=== PATIENT | female | born 1980 | race Caucasian/White ===

== ENCOUNTER → 2022-06-09 | Outpatient (CLI) | payer BC ==
--- NOTE | 2022-06-10 15:50 | MM ---
Reason for Exam: Screening (asymptomatic). Patient History: Menarche at age 16. Hormonal Contraceptives, from age 18 until age 26. Risk Values: Vanda 5 year model risk: 0.4%. NCI Lifetime model risk: 6.7%. Prior Study Comparison: No prior studies available for comparison. Tissue Density: The breast tissue is heterogeneously dense. This may lower the sensitivity of mammography. Findings: Analyzed By CAD. Area of nodular asymmetric density central posterior left MLO view incompletely disperses on 3-D images. This may represent superimposition shadow but further evaluation is recommended. Faint grouped microcalcifications superior anterior left MLO view also warrant further evaluation with magnification views. Otherwise, no significant mass, suspicious microcalcification, or other discrete abnormality is seen. Overall Assessment: Incomplete: need additional imaging evaluation, BI-RAD 0 Management: Special View Mammogram of the left breast. To include spot mag CC, spot mag lateral, 3-D lateral, and spot 3-D MLO views (for the anterior 12-1 o'clock microcalcifications and for the central posterior left MLO asymmetric density). Targeted ultrasound left breast for any persisting abnormality. Electronically signed and approved by: Pete Olivares M.D. Radiologist
== END | disposition home or self-care (01) ==
LOC: RADMAMWWP 07:15
PROVIDERS: ATTEND Obstetrics & Gynecology
DX: Z12.31 Encounter for screening mammogram for malignant neoplasm of breast (principal)
CPT/HCPCS: 77063; 77067

== ENCOUNTER → 2022-06-15 | Outpatient (CLI) | payer BC ==
--- NOTE | 2022-06-15 15:45 | MM ---
Reason for Exam: Additional evaluation requested from abnormal screening. Last screening mammogram was performed less than 1 month ago. Patient History: Menarche at age 16. Patient has no children. Hormonal Contraceptives, from age 18 until age 26. Last menstrual period: 05/29/2022 Risk Values: Vanda 5 year model risk: 0.6%. NCI Lifetime model risk: 10.2%. Prior Study Comparison: 06/09/2022 Bilateral MG 3D screening mammo w/cad, [facility]. Tissue Density: Left: The breast tissue is heterogeneously dense. This may lower the sensitivity of mammography. Findings: Analyzed By CAD. Grouped microcalcifications 12:00 left breast are faint but punctate and slightly heterogeneous. Sampling is recommended. The central posterior MLO asymmetric density disperses on additional views. Overall Assessment: Suspicious, BI-RAD 4 Management: Stereotactic Core Biopsy of the left breast. For the 12:00 left breast microcalcifications. These can be targeted with a CC from above approach. Electronically signed and approved by: Pete Olivares M.D. Radiologist
== END | disposition home or self-care (01) ==
LOC: RADMAMWWP 14:57
PROVIDERS: ATTEND Obstetrics & Gynecology
DX: R92.1 Mammographic calcification found on diagnostic imaging of breast (principal)
CPT/HCPCS: 77061; 77065

== ENCOUNTER → 2022-06-30 | Day surgery (SDC) | payer BC ==
[2022-06-30 10:14] VITALS: RESP 16
[2022-06-30 11:12] VITALS: BP 110/75; PULSE 86; TEMP 98.2
--- NOTE | 2022-07-05 11:35 | MM ---
Risk Values: Vanda 5 year model risk: 0.6%. NCI Lifetime model risk: 10.2%. Prior Study Comparison: 06/09/2022 Bilateral MG 3D screening mammo w/cad, [facility]. 06/15/2022 Left MG 3D work up w/cad , [facility]. Pathology Description: Location: 11 o'clock, central. Marker Left Behind. Specimen Radiograph. Approach: CC FA Needle Type: Eviva Cores: 7 Skin Nicks: 1 Gauge: 9 The procedure of stereotactic guided core biopsy was explained to the patient. Benefits, alternatives, and risks were discussed. An informed consent was then obtained. The shortness pathway for biopsy was chosen. Shortness pathway was cranial to caudal approach. I performed the localization, then perform the remainder of the procedure. Overlying skin is cleansed with Betadine. Lidocaine is used as anesthetic into the skin and deeper tissue. Lidocaine with epinephrine is used as anesthetic to the deeper tissue while sampling. A vacuum assisted biopsy gun was used to obtain multiple core samples. The patient tolerated the procedure well without any immediate complication. The patient was kept in the radiology department for short stay after the procedure and then discharged home in stable condition. Targeted calcifications are identified in specimen mammogram. Post biopsy mammogram shows the clip to appear in satisfactory position relative to the targeted area of concern on the preprocedure images. Impression: SUCCESSFUL, UNCOMPLICATED STEREOTACTIC GUIDED CORE BIOPSY OF AREA OF CONCERN IN THE LEFT BREAST. Pathology Results: Result: Benign, Fibrocystic change. LEFT BREAST, STEREOTACTIC NEEDLE CORE BIOPSY: Fibrocystic changes including sclerosing adenosis with calcifications, columnar cell change, fibrosis and cysts. Overall Assessment: Benign Management: Diagnostic Mammogram of the left breast in 6 months. Electronically signed and approved by: Juan Paige M.D.
== END ==
LOC: RADMAMWWP 09:52
PROVIDERS: ATTEND Surgery
DX: N60.22 Fibroadenosis of left breast (principal); N60.32 Fibrosclerosis of left breast; N60.02 Solitary cyst of left breast
CPT/HCPCS: 88305; 19081; A4648; J2001

== ENCOUNTER → 2022-08-03 | Outpatient (CLI) | payer BC ==
[2022-08-03 14:28] LABS: Basophils # (A) 0.05 X 10*3/uL (0.00-0.10); Eosinophils # (A) 0.17 X 10*3/uL (0.04-0.35); Eosinophils % (A) 3.4 %; HCT 42.2 % (37.2-46.3); HGB 13.8 g/dL (12.0-15.0); Immature Grans, Automated 0.2 %; Lymphocytes % (A) 37.5 %; MCH 28.8 pg (27.0-32.0); MCHC 32.7 g/dL (32.0-37.0); MCV 87.9 fL (80.0-97.0); Mean Platelet Volume 11.3 fL (9.5-12.2); Monocytes # (A) 0.62 X 10*3/uL (0.20-1.00); Monocytes % (A) 12.3 %; NRBC Per 100 WBC 0 /100 WBCS (0.0-0.0); Neutrophils # (A) 2.31 X 10*3/uL (1.80-7.70); Neutrophils % (A) 45.6 %; Platelet Count 259 X 10*3/uL (140-440); RDW 12.6 % (11.5-14.5); WBC 5.06 X 10*3/uL (4.50-10.00)
[2022-08-03 15:01] LABS: ALT 12 U/L (8-44); AST 19 U/L (13-35); African American GFR (CKD) 87.5 (60.0-200.0); Albumin 4.2 g/dL (3.8-4.9); Alkaline Phosphatase 74 U/L (41-126); BUN/Creat Ratio 13.98 Ratio (12.00-20.00); Blood Urea Nitrogen 13.2 mg/dL (9.0-27.0); Calcium 9.2 mg/dL (8.7-10.3); Carbon Dioxide 26.2 mmol/L (20.0-27.5); Chloride 105 mmol/L (96-109); Globulin 2.6 g/dL (1.6-3.3); Glucose 94 mg/dL (70-110); Non-African American GFR(CKD) 75.5 (60.0-200.0); Potassium 4.7 mmol/L (3.5-5.5); Sodium 140 mmol/L (135-145); Total Protein 6.8 g/dL (6.2-8.2)
[2022-08-03 15:41] LABS: Chol/HDL Ratio 2.46 Ratio
== END | disposition home or self-care (01) ==
LOC: LABWHC1 07:54
PROVIDERS: ATTEND Family Medicine
DX: Z00.01 Encounter for general adult medical examination with abnormal findings (principal); Z13.1 Encounter for screening for diabetes mellitus
CPT/HCPCS: 36415; 80053; 80061; 83036; 83721; 84443; 85025

== ENCOUNTER → 2023-01-18 | Outpatient (CLI) | payer MEDICAID ==
--- NOTE | 2023-01-18 11:11 | MM ---
Reason for Exam: Follow-up at short interval from prior study. Last screening mammogram was performed 7 month(s) ago. Patient History: Menarche at age 16. Patient has no children. Hormonal Contraceptives, from age 18 until age 26. 06/30/2022, Benign MG stereo VAD BX LT on the left side. Risk Values: Vanda 5 year model risk: 0.9%. NCI Lifetime model risk: 12.4%. Prior Study Comparison: 06/09/2022 Bilateral MG 3D screening mammo w/cad, [facility]. 06/15/2022 Left MG 3D work up w/cad LT, [facility]. Tissue Density: Left: The breast tissue is heterogeneously dense. This may lower the sensitivity of mammography. Findings: Analyzed By CAD. Post stereotactic core biopsy changes upper central left breast. No suspicious calcifications seen. No evidence for mass or distortion. Overall Assessment: Benign, BI-RAD 2 Management: Screening Mammogram of both breasts in 6 months. A clinical breast exam by your physician is recommended on an annual basis and results should be correlated with mammographic findings. This exam should not preclude additional follow-up of suspicious palpable abnormalities. Results were given to the patient verbally at the time of exam. Electronically signed and approved by: Rodolfo Waller M.D. Radiologis
== END | disposition home or self-care (01) ==
LOC: RADMAMWWP 10:47
PROVIDERS: ATTEND Surgery
DX: R92.8 Other abnormal and inconclusive findings on diagnostic imaging of breast (principal); Z98.890 Other specified postprocedural states
CPT/HCPCS: 77061; 77065

== ENCOUNTER → 2023-08-09 | Outpatient (CLI) | payer MEDICAID ==
[2023-08-09 11:10] LABS: Basophils # (A) 0.04 X 10*3/uL (0.00-0.10); Basophils % (A) 0.8 %; HCT 40.3 % (37.2-46.3); HGB 13.3 d/dL (12.0-15.0); Lymphocytes # (A) 1.82 X 10*3/uL (0.90-5.00); Lymphocytes % (A) 37.3 %; MCH 29.1 pg (27.0-32.0); MCV 88.2 FL (80.0-97.0); Mean Platelet Volume 10.7 FL (9.5-12.2); Monocytes # (A) 0.52 X 10*3/uL (0.20-1.00); Monocytes % (A) 10.7 %; NRBC Per 100 WBC 0 X 10*3/uL (0.00-0.01); Neutrophils # (A) 2.39 X 10*3/uL (1.80-7.70); Platelet Count 240 X 10*3/uL (140-440); RBC 4.57 X 10*6/uL (4.10-5.20); RDW 12.7 % (11.5-14.5); WBC 4.88 X 10*3/uL (4.50-10.00)
[2023-08-09 11:40] LABS: ALT 26 U/L (8-44); AST 23 U/L (13-35); Albumin 4.1 d/dL (3.8-4.9); Albumin/Globulin Ratio 1.95 Ratio (1.60-3.17); Alkaline Phosphatase 70 U/L (41-126); BUN/Creat Ratio 16.11 Ratio (12.00-20.00); Blood Urea Nitrogen 14.5 mg/dL (9.0-27.0); Carbon Dioxide 27.7 mmol/L (21.6-31.8); Chloride 104 mmol/L (96-109); Chol/HDL Ratio 2.22 Ratio; Globulin 2.1 d/dL (1.6-3.3); Glucose 95 mg/dL (70-110); LDL Cholesterol,Calculated 73.2 mg/dL (0.0-131.0); Potassium 4.6 mmol/L (3.5-5.5); Sodium 141 mmol/L (135-145); T4, Free (Free Thyroxine) 1.08 ng/dL (0.80-1.80); Total Bilirubin 0.3 mg/dL (0.3-1.2); Total Protein 6.2 d/dL (6.2-8.2); VLDL Calculation 7.54 mg/dL (5.00-40.00)
--- NOTE | 2023-08-10 10:56 | MM ---
Reason for Exam: Screening (asymptomatic). Last mammogram was performed 1 year(s) and 2 month(s) ago. Patient History: Menarche at age 16. Patient has no children. Hormonal Contraceptives, from age 18 until age 26. 06/30/2022, Benign MG stereo VAD BX LT on the left side. Last menstrual period: 07/28/2023 Risk Values: Vanda 5 year model risk: 1.0%. NCI Lifetime model risk: 12.2%. Prior Study Comparison: 06/09/2022 Bilateral MG 3D screening mammo w/cad, [facility]. 06/15/2022 Left MG 3D work up w/cad LT, [facility]. 01/18/2023 Left MG diagnostic mammo LT w CAD, [facility]. Tissue Density: The breast tissue is heterogeneously dense. This may lower the sensitivity of mammography. Findings: Analyzed By CAD. There is no suspicious group of microcalcifications or new suspicious mass in either breast. Overall Assessment: Benign, BI-RAD 2 Management: Screening Mammogram of both breasts in 1 year. . Patient should continue monthly self-breast exams. A clinical breast exam by your physician is recommended on an annual basis. This exam should not preclude additional follow-up of suspicious palpable abnormalities. Note on Vanda scores and lifetime risk: 1. A Vanda score greater than 3% is considered moderate risk. If this is the case, consider specialist referral to assess eligibility for a risk reducing agent. 2. If overall lifetime risk for the development of breast cancer is 20% or higher, the patient may qualify for future screening with alternating mammogram and breast MRI. Electronically signed and approved by: Rodolfo Waller M.D. Radiologis
== END | disposition home or self-care (01) ==
LOC: LABWHC1 07:01
PROVIDERS: ATTEND Family Medicine
DX: Z00.01 Encounter for general adult medical examination with abnormal findings (principal); Z13.1 Encounter for screening for diabetes mellitus; Z51.81 Encounter for therapeutic drug level monitoring; Z12.31 Encounter for screening mammogram for malignant neoplasm of breast
CPT/HCPCS: 36415; 77063; 77067; 80053; 80061; 82306; 83036; 84439; 84443; 85025

== ENCOUNTER → 2024-08-20 | Outpatient (CLI) | payer MEDICAID ==
[2024-08-20 15:55] LABS: Basophils # (A) 0.04 X 10*3/uL (0.00-0.10); Basophils % (A) 0.8 %; Eosinophils # (A) 0.11 X 10*3/uL (0.04-0.35); Eosinophils % (A) 2.3 %; HCT 40.6 % (37.2-46.3); HGB 13.5 g/dL (12.0-15.0); Lymphocytes # (A) 1.53 X 10*3/uL (0.90-5.00); Lymphocytes % (A) 31.9 %; MCH 29.3 pg (27.0-32.0); MCHC 33.3 g/dL (32.0-37.0); MCV 88.3 FL (80.0-97.0); Mean Platelet Volume 10.9 FL (9.5-12.2); Monocytes # (A) 0.52 X 10*3/uL (0.20-1.00); Monocytes % (A) 10.9 %; NRBC Per 100 WBC 0 X 10*3/uL (0.00-0.01); Neutrophils # (A) 2.58 X 10*3/uL (1.80-7.70); Neutrophils % (A) 53.9 %; Platelet Count 250 X 10*3/uL (140-440); RDW 12.5 % (11.5-14.5); WBC 4.79 X 10*3/uL (4.50-10.00)
[2024-08-20 17:58] LABS: % Iron Saturation 41.52 (12.00-45.00); ALT 28 U/L (8-44); AST 27 U/L (13-35); Albumin 3.9 g/dL (3.8-4.9); Alkaline Phosphatase 75 U/L (41-126); BUN/Creat Ratio 12.75 Ratio (12.00-20.00); Blood Urea Nitrogen 10.2 mg/dL (9.0-27.0); Calcium 8.9 mg/dL (8.7-10.3); Carbon Dioxide 22.3 mmol/L (21.6-31.8); Chloride 106 mmol/L (96-109); Chol/HDL Ratio 2.34 Ratio; Globulin 2.3 g/dL (1.6-3.3); Glucose 96 mg/dL (70-110); Iron 137 UG/DL (50-170); LDL Cholesterol,Calculated 68.9 mg/dL (0.0-131.0); Potassium 4.6 mmol/L (3.5-5.5); Sodium 139 mmol/L (135-145); Total Bilirubin 0.4 mg/dL (0.3-1.2); Total Iron Binding Capacity 330 UG/DL (228-460); Total Protein 6.2 g/dL (6.2-8.2); VLDL Calculation 8.92 mg/dL (5.00-40.00)
[2024-08-20 17:59] LABS: Ferritin 48.5 ng/mL (10.0-291.0)
== END | disposition home or self-care (01) ==
LOC: LABWHC1 08:02
PROVIDERS: ATTEND Family Medicine
CPT/HCPCS: 36415; 80053; 80061; 82306; 82607; 82728; 82746; 83036; 83540; 83550; 84443; 85025

== ENCOUNTER → 2024-08-27 | Outpatient (CLI) | payer MEDICAID ==
--- NOTE | 2024-08-28 09:34 | MM ---
Reason for Exam: Screening (asymptomatic). Last screening mammogram was performed 12 month(s) ago. Patient History: Menarche at age 16. Patient has no children. Hormonal Contraceptives, from age 18 until age 26. 06/30/2022, Benign MG stereo VAD BX LT on the left side. Risk Values: Vanda 5 year model risk: 1.1%. NCI Lifetime model risk: 12.1%. Prior Study Comparison: 06/15/2022 Left MG 3D work up w/cad LT, [facility]. 01/18/2023 Left MG diagnostic mammo LT w CAD, [facility]. 08/09/2023 Bilateral MG 3D screening mammo w/cad, [facility]. Tissue Density: The breasts are heterogeneously dense, which may obscure small masses. Findings: Analyzed By CAD. Microclip left breast from prior biopsy. There are several groups of microcalcifications posterior upper quadrant right breast which are either new/increased. On the MLO view, there may be an associated density. Further magnification views recommended. Otherwise, no significant change. Overall Assessment: Incomplete: need additional imaging evaluation, BI-RAD 0 Management: Special View Mammogram of the right breast. To include mag CC, mag ML, and 3-D ML views. [facility] will attempt to contact patient to return for supplemental views and ultrasound if indicated. [facility], , 08/28/2024 9:28 AM. Electronically signed and approved by: Pete Olivares M.D. Radiologist
== END | disposition home or self-care (01) ==
LOC: RADMAMWWP 07:00
PROVIDERS: ATTEND Obstetrics & Gynecology
CPT/HCPCS: 77063; 77067

== ENCOUNTER → 2024-08-30 | Outpatient (CLI) | payer MEDICAID ==
--- NOTE | 2024-08-30 08:52 | MM ---
Reason for Exam: Additional evaluation requested from abnormal screening. Last screening mammogram was performed less than 1 month ago. Patient History: Menarche at age 16. Patient has no children. Hormonal Contraceptives, from age 18 until age 26. 06/30/2022, Benign MG stereo VAD BX LT on the left side. Risk Values: Vanda 5 year model risk: 1.1%. NCI Lifetime model risk: 12.1%. Tissue Density: Right: The breasts are heterogeneously dense, which may obscure small masses. Findings: Analyzed By CAD. Faint increasing grouped and heterogeneous calcifications posterior upper outer quadrant. These can be targeted from a lateral to medial approach. These appear to represent 2 separate groups on the cc view which have a similar morphology. The single site biopsy should be sufficient. We note previous benign biopsy for calcifications in the left breast. Overall Assessment: Suspicious, BI-RAD 4 Management: Stereotactic Core Biopsy of the right breast. Results were given to the patient verbally at the time of exam. [facility], , 08/30/2024 8:50 AM. Electronically signed and approved by: Pete Olivares M.D. Radiologist
== END | disposition home or self-care (01) ==
LOC: RADMAMWWP 08:21
PROVIDERS: ATTEND Obstetrics & Gynecology
DX: R92.8 Other abnormal and inconclusive findings on diagnostic imaging of breast (principal); R92.333 Mammographic heterogeneous density, bilateral breasts
CPT/HCPCS: 77061; 77065

== ENCOUNTER → 2024-09-05 | Day surgery (SDC) | payer MEDICAID ==
[~2024-09-05] MED LIST: ALPRAZolam 0.25 MG TAB PO PRN; ALPRAZolam 0.5 MG TAB PO PRN
[2024-09-05 10:06] VITALS: RESP 16
[2024-09-05 11:21] VITALS: BP 109/72; PULSE 77; TEMP 98.1
== END ==
LOC: RADMAMWWP 09:50
PROVIDERS: ATTEND Surgery
DX: N60.11 Diffuse cystic mastopathy of right breast (principal)
CPT/HCPCS: 88305; 19081; 19082; A4648; J2003